=== PATIENT | female | born 1935 | race Caucasian/White ===

== ENCOUNTER → 2018-11-23 13:54 | Outpatient (CLI) | payer MEDICARE, OTHER | END | disposition home or self-care (01) | LOC: D.LAB 13:54 | PROVIDERS: ATTEND Internal Medicine Gastroenterology | DX: K90.0 Celiac disease (principal) ==

== ENCOUNTER → 2019-01-04 13:58 | Outpatient (CLI) | payer MEDICARE, OTHER | END | disposition home or self-care (01) | LOC: D.LAB 13:58 | PROVIDERS: ATTEND Internal Medicine Gastroenterology | DX: K90.0 Celiac disease (principal); R19.4 Change in bowel habit ==

== ENCOUNTER 2019-03-11 09:57 | Inpatient (IN) | payer MEDICARE, OTHER ==
[2019-03-11] VITALS (37 sets, daily range): BP systolic 93–212; BP diastolic 54–144; BMI 31.6
[~2019-03-11] VITALS: Ht 162.6 cm; Wt 85.5 kg
[2019-03-11] MEDS ORDERED: ASPIRIN81 MG (10:08)
[2019-03-11] MEDS ORDERED: ZOCOR10 MG PO (10:08)
[2019-03-11] MEDS ORDERED: CENTRUM SILVER1 EAC3 PO (10:08)
[2019-03-11] MEDS ORDERED: CALCIUM 600 +1 EAC3 PO (10:09)
[2019-03-11 10:39] LABS: APPEARANCE CLEAR (CLEAR); BILIRUBIN NEGATIVE (NEGATIVE); COLOR STRAW (YELLOW); GLUCOSE NEGATIVE (NEGATIVE); KETONE NEGATIVE (NEGATIVE); NITRITE NEGATIVE (NEGATIVE); PROTEIN 1+ mg/dL (NEGATIVE); SPECIFIC GRAVITY 1.005 (1.005-1.020); UROBILINOGEN NORMAL (NORMAL)
[2019-03-11 10:40] LABS: BACTERIA FEW /hpf (NEGATIVE); EPITHELIAL CELLS 0-5 /hpf (0-5); RED CELLS - URINE 0-5 /hpf (0-5); WHITE CELLS - URINE 0-5 /hpf (NEGATIVE)
[2019-03-11 10:48] LABS: BASOPHILS 0.2 % (0-2); HEMATOCRIT 43.3 % (36.0-48.0); HEMOGLOBIN 14.5 g/dL (12-16); IMMATURE GRANULOCYTES 0.3 % (0-5); LYMPHOCYTES 11.8 % (15-50); MCHC 33.5 g/dL (31.0-37.0); MCV 92.7 fL (80.0-100.0); MEAN PLATELET VOLUME 8.6 fL (7.4-10.4); MONOCYTES 5.7 % (2-11); PLATELET COUNT 242 10x3/uL (130-400); RBC 4.67 10x6/uL (4.00-5.40); RDW 13.8 % (11.5-14.5); WBC 13.8 10x3/uL (4.8-10.8)
[2019-03-11 10:58] LABS: ANION GAP 11.6 mmol/L (8-16); CALCIUM 8.9 mg/dL (8.5-10.1); CARBON DIOXIDE 26.5 mmol/L (21.0-32.0); CREATININE - SERUM 1.1 mg/dL (0.6-1.3); POTASSIUM - SERUM 3.1 mmol/L (3.5-5.1)
[2019-03-11 11:04] LABS: ALBUMIN 3.8 g/dL (3.4-5.0); BILIRUBIN - TOTAL 0.77 mg/dL (0.2-1.3); PROTEIN - SERUM 8.6 g/dL (6.4-8.2)
[2019-03-11 11:28] LABS: APTT 28.4 SECONDS (22.8-39.4); INR 0.98 (0.85-1.17); PROTIME 12.5 SECONDS (11.6-15.0)
[2019-03-11 11:47] LABS: CKMB 1.5 U/L (0.0-3.6); CREATINE KINASE 377 UL (21-215); PRO BNP 172 pg/mL (0-450); TROPONIN-I < 0.017 ng/mL (0.000-0.060)
--- NOTE | 2019-03-11 12:25 | NUR ---
PT RETURN FROM CT WITH INCREASED C/O DYSPNEA AND SWEATING; EDP NOTIFIED; ABG AND UPDRAFT ORDERED; PT OXYGEN INCREASED TO 3/L/NC. WILL REASESS
--- NOTE | 2019-03-11 13:30 | NUR ---
PT ON BIPAP/CPAP; SHE IS STILL DIAPHORETIC AND APPEARS ANXIOUS. COLOR IS WNL FOR RACE. BREATHING IS MODERATLY LABORED. SHE IS UPDATED ON PLAN OF CARE AND DELAYS IN CARE; COMPANIONS AT BEDSIDE; WILL CONTINUE TO MONITOR.
--- NOTE | 2019-03-11 14:52 | NUR ---
PT ASSISTED WITH BEDPAN; URINE SPECIMEN COLLECTED AND SENT TO LAB
--- NOTE | 2019-03-11 15:06 | NUR ---
LR AND ROCEPHIN INFUSION COMPLETE.
--- NOTE | 2019-03-11 15:24 | NUR ---
PER LAB LACTIC ACID IS 3.0. ADVISED ICU NURSE AND DR. MCNALLY.
--- NOTE | 2019-03-11 15:30 | NUR ---
PT ARRIVED IN THE UNIT. HOOKED TO ICU MONITORS. PT ON BIPAP. VSS AT THIS TIME. WILL CONT POC.
--- NOTE | 2019-03-11 15:43 | NUR ---
BP 181/119 DR GONZALES PAGED. NO ANSWER RECIEVED. WILL ATTEMPT TO CONTACT AGAIN.
--- NOTE | 2019-03-11 15:45 | NUR ---
PER DR GONZALES START CARDIZEM GTT AT 10.
--- NOTE | 2019-03-11 16:04 | NUR ---
CALLED DR GONZALES. CONFIRMED THAT HE WANTED CARDIZEM.
--- NOTE | 2019-03-11 16:29 | NUR ---
SPOKE WITH DR PANTOJA AT THE PTS BEDSIDE. DO NOT GIVE CARDIZEM AND START CARDENE. SEE IV FLOW SHEET.
[2019-03-11] MEDS ORDERED: VITAMIN B-12500 MCG PO (16:34)
[2019-03-11] MEDS ORDERED: VITAMIN B-6100 MG PO (16:35)
--- NOTE | 2019-03-11 17:15 | MORECARE ---
CASE MANAGEMENT DISCHARGE SUMMARY PATIENT: VIDYA RAMIERZ UNIT: [id number] ADM DATE: 03/11/19 AGE: 83 : 34 SEX: F ROOM/BED: D.2307 AUTHOR: MARIAM,DOC PHYSICIAN: REFERRING PHYSICIAN: SUZE GONZALES MD DATE OF SERVICE: 03/11/19 Discharge Plan Patient Name: VIDYA RAMIREZ Facility: [facility]:[place] : 1935 Planned Disposition: Home Anticipated Discharge Date: 03/13/19 Discharge Date: Expected LOS: 2 Initial Reviewer: [email or web address] Initial Review Date: 03/11/2019 Generated: 03/11/19 6:15 pm DCP- Discharge Planning Updated by [email or web address]: Latesha Mathews on 03/11/19 4:[address] DC PLAN: Return home alone independently. ANTICIPATED DC NEEDS: Denied known dc needs at time of assessment. CM met with patient to complete initial dc planning assessment. CM educated patient on the CM role and verbal consent given by patient to complete assessment. CM verified patient's address, phone number, and emergency contact phone numbers. Patient lives at home alone and is independent in her care at home. At discharge patient plans to return home and feels this is a safe discharge. CM discussed availability of home health, rehab services, and medical equipment. Patient denied known discharge needs at this time. Her son and daughter both lives out of town but are traveling here since she is being admitted. Transportation provider at discharge will be Akash (neighbor) or one of her kids . CM will continue to follow and will assist as needed with dc plans/needs. Latesha Mathews RN, [facility] DCPIA - Discharge Planning Initial Assessment Updated by [email or web address]: Latesha Mathews on 03/11/19 5:09 pm * Is the patient Alert and Oriented? Yes * How many steps to enter\exit or inside your home? 13 * PCP Dr. Perez * [facility] [place] * Preadmission Environment Home Alone * ADLs Independent * Equipment None * List name and contact numbers for known caregivers / representatives who currently or will assist patient after discharge: Irene Hooker - daughter - [phone] Harjinder Ramirez - son - [phone] Akash Bryson - friend/neighbor - [phone] * Verbal permission to speak to the caregivers and representatives has been obtained from the patient. Yes * Community resources currently utilized None * Additional services required to return to the preadmission environment? No * Can the patient safely return to the preadmission environment? Yes * Has this patient been hospitalized within the prior 30 days at any hospital? No Patient Name: VIDYA RAMIREZ Page [id number] at 1715 All edits/amendments must be made on the electronic document DICTATION DATE: 03/11/191714 COMMERCIAL REPRESENTATIVE: DAVEY 03/11/191714 RPT#: [id number] DC DATE: STATUS: ADM IN [facility] [address] [place] [address] END OF REPORT
--- NOTE | 2019-03-11 20:00 | NUR ---
RECEIVED CARE OF PT, ASSESSMENT PER FLOWSHEET. PT ALERT AND ORIENTED X 4, HR SR ON CM, PPP, BIPAP IN PLACE. ICE WATER AND ORAL CARE PROVIDED, PT ABLE TO REPOSITION SELF, CARDENE GTT AT 9MG/HR, WILL MONITOR.
--- NOTE | 2019-03-11 21:50 | NUR ---
ASSISTED PT ONTO BEDPAN PER REQUEST, VOIDED 175CC OF CLOUDY YELLOW URINE, PERICARE PROVIDED.
--- NOTE | 2019-03-11 23:15 | NUR ---
REASSESSMENT PER FLOWSHEET, PT REMAINS ON 70% BIPAP, TOLERATING WELL. VSS, CARDENE GTT REMAINS OFF, WILL MONITOR.
[2019-03-12] VITALS (24 sets, daily range): BP systolic 104–144; BP diastolic 57–96; Ht 162.6 cm; Wt 85.5 kg
--- NOTE | 2019-03-12 01:20 | NUR ---
PT SON IN VISITING WITH PT, PT IN NO APPARENT DISTRESS, VSS, ALL QUESTIONS ANSWERED. BOTH DENY ANY NEEDS AT THIS TIME.
[2019-03-12 03:15] LABS: ANION GAP 14.7 mmol/L (8-16); CALCIUM 8.5 mg/dL (8.5-10.1); CARBON DIOXIDE 24.1 mmol/L (21.0-32.0); CREATININE - SERUM 1.2 mg/dL (0.6-1.3); MAGNESIUM - SERUM 2.1 mg/dL (1.8-2.4); POTASSIUM - SERUM 3.8 mmol/L (3.5-5.1)
--- NOTE | 2019-03-12 03:30 | NUR ---
ASSISTED PT ONTO BEDPAN, VOIDED 200CC OF CLOUDY YELLOW URINE, PERICARE PROVIDED, WATER AND ORAL CARE PROVIDED.
[2019-03-12 03:38] LABS: BASOPHILS 0.1 % (0-2); EOSINOPHILS 0 % (0-7); HEMATOCRIT 41.4 % (36.0-48.0); HEMOGLOBIN 13.8 g/dL (12-16); IMMATURE GRANULOCYTES 0.2 % (0-5); LYMPHOCYTES 6.7 % (15-50); MCH 30.5 pg (26.0-34.0); MCHC 33.3 g/dL (31.0-37.0); MCV 91.4 fL (80.0-100.0); MEAN PLATELET VOLUME 8.8 fL (7.4-10.4); MONOCYTES 2.6 % (2-11); NEUTROPHILS 90.4 % (40-80); PLATELET COUNT 254 10x3/uL (130-400); RBC 4.53 10x6/uL (4.00-5.40); RDW 13.7 % (11.5-14.5); WBC 16.1 10x3/uL (4.8-10.8)
--- NOTE | 2019-03-12 05:55 | NUR ---
NO VISITORS PRESENT AT THIS TIME, PT RESTING WITH EYES CLOSED, VSS, BIPAP IN PLACE.
--- NOTE | 2019-03-12 08:05 | NUR ---
PT FAMILY AT BEDSIDE UPDATE GIVEN. WILL CONTINUE TO MONITOR.
--- NOTE | 2019-03-12 09:45 | NUR ---
DR TRISTAN AT THE PTS BEDSIDE.
--- NOTE | 2019-03-12 09:59 | NUR ---
INSTRUCTED THE PT TO USE HER IS 10X'S/H. PT PULLS ABOUT 500 TO 750 ON HER IS. WILL CONT POC.
--- NOTE | 2019-03-12 10:56 | NUR ---
IRENE RECIEVED FROM FATOUMATA COLINDRES
--- NOTE | 2019-03-12 11:33 | NUR ---
PATIENT HAD SMALL BM AND URINE. AMBULATED FROM BED TO BEDSIDE
--- NOTE | 2019-03-12 11:33 | NUR ---
PATIENT SPUTUM IS WILSON COLORED.
--- NOTE | 2019-03-12 12:36 | NUR ---
PATIENT ONLY AT 25% OF HER TRAY. DR CORDOVA AT BEDSIDE.
--- NOTE | 2019-03-12 19:00 | NUR ---
REPORT RECIEVED, SHIFT ASSESSMENT COMPLETE, PT IS ALERT AND ORIENTED, ON 10L HIGH LINDY NC WITH 97% O2 SAT. ALL PPP, VSS, CALL LIGHT IN REACH
--- NOTE | 2019-03-12 21:00 | NUR ---
FAMILY AT BEDSIDE, UPDATE GIVEN
--- NOTE | 2019-03-12 23:11 | NUR ---
REASSESSMENT COMPLETE, NO CHANGES NOTED, PT RESTING AT THIS TIME, VSS, CALL LIGHT IN REACH
[2019-03-13] VITALS (13 sets, daily range): BP systolic 113–177; BP diastolic 59–91
--- NOTE | 2019-03-13 01:15 | NUR ---
PT RESTING WITH EYES CLOSED, NO SIGN OF DISTRESS.
--- NOTE | 2019-03-13 03:26 | NUR ---
REASSESSMENT PER FLOWSHEET, NO ACUTE CHANGES. PT AWAKENS EASILY, DENIES NEEDS. WILL CONT TO WEAN FIO2 PER MD ORDER TOLERATED. ALARMS ON AND C/L IN REACH.
--- NOTE | 2019-03-13 07:00 | NUR ---
PT RESTING IN BED, VSS AND WNL. PT ANSWERS ALL QUESTIONS. SHIFT ASSESSMENT PERFORMED. DENIES ANY NEEDS AT THIS TIME, WILL CONT TO FOLLOW POC
[2019-03-13 07:45] LABS: HEMATOCRIT 41.4 % (36.0-48.0); HEMOGLOBIN 13.9 g/dL (12-16); MCHC 33.6 g/dL (31.0-37.0); MCV 92.4 fL (80.0-100.0); MEAN PLATELET VOLUME 8.8 fL (7.4-10.4); PLATELET COUNT 257 10x3/uL (130-400); RBC 4.48 10x6/uL (4.00-5.40); RDW 14.2 % (11.5-14.5); WBC 23.2 10x3/uL (4.8-10.8)
[2019-03-13 08:00] LABS: ANION GAP 12.4 mmol/L (8-16); CALCIUM 9.1 mg/dL (8.5-10.1); CREATININE - SERUM 0.9 mg/dL (0.6-1.3)
[2019-03-13 08:01] LABS: POTASSIUM - SERUM 4.4 mmol/L (3.5-5.1)
--- NOTE | 2019-03-13 08:30 | NUR ---
PT RESTING IN BED, FAMILY AT BEDSIDE. VSS AND WNL. DENIES ANY NEEDS AT THIS TIME, PT O2 DOWN TO 3L NC. WILL CONT TO FOLLOW POC
--- NOTE | 2019-03-13 09:42 | NUR ---
PT BP 142/75, SPOKE WITH ABOUT RESUMING PT NORVASC SINCE PLACED THE MEDICATION ON HOLD. PER OK TO RESTART NORVASC AND PUT IN TRANSFER ORDERS FOR THE FLOOR.
[2019-03-13 10:16] LABS: LYMPHOCYTES 10 % (15-50); MONOCYTES 14 % (2-11); NEUTROPHILS 74 % (40-80); PLATELET ESTIMATE NORMAL; ROULEAUX OCC
--- NOTE | 2019-03-13 11:19 | NUR ---
HERE AND SPOKE WITH PT. AGREES WITH TRANSFER TO FLOOR. PT RESTING IN BED, VSS AND WNL. CALL LIGHT WITHIN REACH. DENIES ANY NEEDS AT THIS TIME, WILL CONT TO FOLLOW POC
--- NOTE | 2019-03-13 13:29 | NUR ---
PT RESTING IN BED. VSS AND WNL. DENIES ANY NEEDS AT THIS TIME, CALL LIGHT WITHIN REACH. WILL CONT TO FOLLOW POC
--- NOTE | 2019-03-13 16:09 | NUR ---
PT TAKEN TO 2224. NOTIFIED NURSE THAT PT WAS IN ROOM
--- NOTE | 2019-03-13 19:40 | NUR ---
SITTING UP IN BED. ALERT AND ORIENTED X4. RESP IRREG. SOB NOTED. PROD COUGH WITH YELLOW/PINK TINGED SPUTUM NOTED. DENIES PAIN. SALINE LOCK NOTED TO LT HAND. SALINE LOCK TO LT FOREARM REMOVED DUE TO LEAKING. O2 @ 4L/HFC. NO ACUTE DISTRESS. VERY TALKATIVE. NO EDEMA. CL IN REACH.
--- NOTE | 2019-03-13 23:54 | NUR ---
AWAKE. LYING IN BED. NO DISTRESS. O2 @ 4L/NC. OCC COUGH NOTED. DENIES NEEDS. CL IN REACH.
[2019-03-14 01:02] VITALS: BP 160/83
--- NOTE | 2019-03-14 03:58 | NUR ---
HAS RESTED WELL THIS SHIFT. NO DISTRESS. LYING IN BED. CL IN REACH.
[2019-03-14 05:11] VITALS: BP 137/60
[2019-03-14 07:14] LABS: BASOPHILS 0.1 % (0-2); EOSINOPHILS 0 % (0-7); HEMATOCRIT 39.5 % (36.0-48.0); HEMOGLOBIN 13.1 g/dL (12-16); IMMATURE GRANULOCYTES 0.7 % (0-5); LYMPHOCYTES 4.5 % (15-50); MCH 30.8 pg (26.0-34.0); MCHC 33.2 g/dL (31.0-37.0); MCV 92.7 fL (80.0-100.0); MEAN PLATELET VOLUME 8.8 fL (7.4-10.4); MONOCYTES 4.7 % (2-11); PLATELET COUNT 260 10x3/uL (130-400); RBC 4.26 10x6/uL (4.00-5.40); RDW 14.3 % (11.5-14.5); WBC 17.7 10x3/uL (4.8-10.8)
[2019-03-14 07:19] LABS: ALBUMIN 3.1 g/dL (3.4-5.0); ANION GAP 13.6 mmol/L (8-16); BILIRUBIN - TOTAL 0.62 mg/dL (0.2-1.3); CALCIUM 8.6 mg/dL (8.5-10.1); CARBON DIOXIDE 23.4 mmol/L (21.0-32.0); CREATININE - SERUM 0.9 mg/dL (0.6-1.3)
[2019-03-14 09:22] VITALS: BP 156/79
--- NOTE | 2019-03-14 09:59 | NUR ---
NUTRITION F/U PT UP TO SHOWER. TOLERATING AHA DIET WITH 100% INTAKE RECENT MEALS. BM RECORDED ON 03/13. WILL CONTINUE TO MONITOR. RD FOLLOWING
--- NOTE | 2019-03-14 10:46 | NUR ---
PA HERE TO SEE PT, ADJUSTING PO MEDS FOR PAIN, CONT TO MONITOR PT
--- NOTE | 2019-03-14 13:10 | MORECARE ---
CASE MANAGEMENT DISCHARGE SUMMARY PATIENT: VIDYA RAMIREZ UNIT: [id number] ADM DATE: 03/11/19 AGE: 83 : 34 SEX: F ROOM/BED: D.2225 AUTHOR: MARIAM,DOC PHYSICIAN: REFERRING PHYSICIAN: SUZE GONZALES MD DATE OF SERVICE: 03/14/19 Discharge Plan Patient Name: VIDYA RAMIREZ Facility: [facility]:[place] : 1935 Planned Disposition: Home Anticipated Discharge Date: 03/13/19 Discharge Date: Expected LOS: 2 Initial Reviewer: [email or web address] Initial Review Date: 03/11/2019 Generated: 03/14/19 2:10 pm DCP- Discharge Planning Updated by [email or web address]: Latesha Mathews on 03/11/19 4:[address] DC PLAN: Return home alone independently. ANTICIPATED DC NEEDS: Denied known dc needs at time of assessment. CM met with patient to complete initial dc planning assessment. CM educated patient on the CM role and verbal consent given by patient to complete assessment. CM verified patient's address, phone number, and emergency contact phone numbers. Patient lives at home alone and is independent in her care at home. At discharge patient plans to return home and feels this is a safe discharge. CM discussed availability of home health, rehab services, and medical equipment. Patient denied known discharge needs at this time. Her son and daughter both lives out of town but are traveling here since she is being admitted. Transportation provider at discharge will be Akash (neighbor) or one of her kids . CM will continue to follow and will assist as needed with dc plans/needs. Latesha Mathews RN, [facility] DCPIA - Discharge Planning Initial Assessment Updated by [email or web address]: Latesha Mathews on 03/11/19 5:09 pm * Is the patient Alert and Oriented? Yes * How many steps to enter\exit or inside your home? 13 * PCP Dr. Perez * [facility] [place] * Preadmission Environment Home Alone * ADLs Independent * Equipment None * List name and contact numbers for known caregivers / representatives who currently or will assist patient after discharge: Irene Hooker - daughter - [phone] Harjinder Ramirez - son - [phone] Akash Bryson - friend/neighbor - [phone] * Verbal permission to speak to the caregivers and representatives has been obtained from the patient. Yes * Community resources currently utilized None * Additional services required to return to the preadmission environment? No * Can the patient safely return to the preadmission environment? Yes * Has this patient been hospitalized within the prior 30 days at any hospital? No External Providers External Provider: [facility] Next Contact Date: Service Request Date: Service Type: Resolution: Reviewer: Comments: Last DP export: 03/11/19 4:15 Patient Name: VIDYA RAMIREZ Page [id number] at 1310 All edits/amendments must be made on the electronic document DICTATION DATE: 03/14/191309 RIDE ATTENDANT: DAVEY 03/14/19 1310 RPT#: [id number] DC DATE: STATUS: ADM IN [facility] [address] [place] [address] END OF REPORT
--- NOTE | 2019-03-14 13:18 | MORECARE ---
CASE MANAGEMENT DISCHARGE SUMMARY PATIENT: VIDYA RAMIREZ UNIT: [id number] ADM DATE: 03/11/19 AGE: 83 : 34 SEX: F ROOM/BED: D.2225 AUTHOR: MARIAM,DOC PHYSICIAN: REFERRING PHYSICIAN: SUZE GONZALES MD DATE OF SERVICE: 03/14/19 Discharge Plan Patient Name: VIDYA RAMIREZ Facility: [facility]:[place] : 1935 Planned Disposition: Home Anticipated Discharge Date: 03/13/19 Discharge Date: Expected LOS: 2 Initial Reviewer: [email or web address] Initial Review Date: 03/11/2019 Generated: 03/14/19 2:18 pm Comments DCP- Discharge Planning Updated by [email or web address]: Rosalie Shepherd on 03/14/19 12:[address] CM met with patient to discuss discharge planning/needs. States Dr. Rahman states she may go home tomorrow. She states her son is here and will take her home. States she has been on inhalers and has them at home. I informed her that Dr. Rahman wants her on a nebulizer and we will check her room air oxygen level to see if she qualifies for home oxygen. DENAE for [employer] [facility] signed. I spoke with Fanta at [facility] and will fax order, clinical faxed. CM will continue to follow and assist with discharge planning/needs. DCP- Discharge Planning Updated by [email or web address]: Latesha Mathews on 03/11/19 4:[address] DC PLAN: Return home alone independently. ANTICIPATED DC NEEDS: Denied known dc needs at time of assessment. CM met with patient to complete initial dc planning assessment. CM educated patient on the CM role and verbal consent given by patient to complete assessment. CM verified patient's address, phone number, and emergency contact phone numbers. Patient lives at home alone and is independent in her care at home. At discharge patient plans to return home and feels this is a safe discharge. CM discussed availability of home health, rehab services, and medical equipment. Patient denied known discharge needs at this time. Her son and daughter both lives out of town but are traveling here since she is being admitted. Transportation provider at discharge will be Akash (neighbor) or one of her kids . CM will continue to follow and will assist as needed with dc plans/needs. Latesha Mathews RN, [facility] DCPIA - Discharge Planning Initial Assessment Updated by [email or web address]: Latesha Mathews on 03/11/19 5:09 pm * Is the patient Alert and Oriented? Yes * How many steps to enter\exit or inside your home? 13 * PCP Dr. Perez * Pharmacy [facility] [place] * Preadmission Environment Home Alone * ADLs Independent * Equipment None * List name and contact numbers for known caregivers / representatives who currently or will assist patient after discharge: Irene Hooker - daughter - [phone] Harjinder Ramirez - son - [phone] Akash Bryson - friend/neighbor - [phone] * Verbal permission to speak to the caregivers and representatives has been obtained from the patient. Yes * Community resources currently utilized None * Additional services required to return to the preadmission environment? No * Can the patient safely return to the preadmission environment? Yes * Has this patient been hospitalized within the prior 30 days at any hospital? No Coverage Notice Reviewer: [email or web address] Shepherd Notice Issued Date-Time: 03/14/2019 12:30 Notice Type: IM Discharge Notice Notice Delivered To: Patient Relationship to Patient: Janitorial Maintenance Worker Name: Delivery Method: HAND - Hand Delivered Yohana Days: Prior Verbal Notification: Recipient Understood Notice: Yes Recipient Signature: Yes Med Rec Note Co-signed by Attending: Coverage Notice Comment: IMM explained, signed, given, copy placed in MR Reviewer: [id number] Shepherd Notice Issued Date-Time: 03/14/2019 12:30 Notice Type: Patient Choice Letter Notice Delivered To: Patient Relationship to Patient: Self Janitorial Maintenance Worker Name: Delivery Method: HAND - Hand Delivered Yohana Days: Prior Verbal Notification: Recipient Understood Notice: Yes Recipient Signature: Yes Med Rec Note Co-signed by Attending: Coverage Notice Comment: [facility] for [facility] DP export: 03/14/19 12:10 Patient Name: VIDYA RAMIREZ Page [phone] at 1318 All edits/amendments must be made on the electronic document DICTATION DATE: 03/14/19 1318 ELECTRONIC FIELD SERVICE ENGINEER: DAVEY 03/14/19 1318 RPT#: [id number] DC DATE: STATUS: ADM IN [facility] [address] [place] [address] END OF REPORT
[2019-03-14 14:25] VITALS: BP 145/72
--- NOTE | 2019-03-14 15:20 | MORECARE ---
CASE MANAGEMENT DISCHARGE SUMMARY PATIENT: VIDYA RAMIREZ UNIT: [id number] ADM DATE: 03/11/19 AGE: 83 : 34 SEX: F ROOM/BED: D.2225 AUTHOR: MARIAM,DOC PHYSICIAN: REFERRING PHYSICIAN: SUZE GONZALES MD DATE OF SERVICE: 03/14/19 Discharge Plan Patient Name: VIDYA RAMIREZ Facility: [facility]:[place] : 1935 Planned Disposition: Home Anticipated Discharge Date: 03/13/19 Discharge Date: Expected LOS: 2 Initial Reviewer: [email or web address] Initial Review Date: 03/11/2019 Generated: 03/14/19 4:19 pm Comments DCP- Discharge Planning Updated by [id number]: Rosalie Shepherd on 03/14/19 2:[address] Signed order for nebulizer and oxygen faxed to [facility] and spoke with Fanta. Fanta states they will bring her oxygen out today and will call her to set up the home oxygen. Fanta states they will deliver her nebulizer and Duo-neb to the house. Fanta states they keep Duo-neb in stock so she can receive it on discharge. I informed the patient. CM will continue to follow and assist with discharge planning/needs. DCP- Discharge Planning Updated by [email or web address]: Rosalie Shepherd on 03/14/19 12:[address] CM met with patient to discuss discharge planning/needs. States Dr. Rahman states she may go home tomorrow. She states her son is here and will take her home. States she has been on inhalers and has them at home. I informed her that Dr. Rahman wants her on a nebulizer and we will check her room air oxygen level to see if she qualifies for home oxygen. DENAE for [employer] [facility] signed. I spoke with Fanta at [facility] and will fax order, clinical faxed. CM will continue to follow and assist with discharge planning/needs. DCP- Discharge Planning Updated by [email or web address]: Latesha Mathews on 03/11/19 4:[address] DC PLAN: Return home alone independently. ANTICIPATED DC NEEDS: Denied known dc needs at time of assessment. CM met with patient to complete initial dc planning assessment. CM educated patient on the CM role and verbal consent given by patient to complete assessment. CM verified patient's address, phone number, and emergency contact phone numbers. Patient lives at home alone and is independent in her care at home. At discharge patient plans to return home and feels this is a safe discharge. CM discussed availability of home health, rehab services, and medical equipment. Patient denied known discharge needs at this time. Her son and daughter both lives out of town but are traveling here since she is being admitted. Transportation provider at discharge will be Akash (neighbor) or one of her kids . CM will continue to follow and will assist as needed with dc plans/needs. Latesha Mathews RN, [facility] DCPIA - Discharge Planning Initial Assessment Updated by [email or web address]: Latesha Mathews on 03/11/19 5:09 pm * Is the patient Alert and Oriented? Yes * How many steps to enter\exit or inside your home? 13 * PCP Dr. Perez * Pharmacy [facility] [place] * Preadmission Environment Home Alone * ADLs Independent * Equipment None * List name and contact numbers for known caregivers / representatives who currently or will assist patient after discharge: Irene Hooker - daughter - [phone] Harjinder Ramirez - son - [phone] Akash Mcmahons - friend/neighbor - [phone] * Verbal permission to speak to the caregivers and representatives has been obtained from the patient. Yes * Community resources currently utilized None * Additional services required to return to the preadmission environment? No * Can the patient safely return to the preadmission environment? Yes * Has this patient been hospitalized within the prior 30 days at any hospital? No Coverage Notice Reviewer: [id number] Shepherd Notice Issued Date-Time: 03/14/2019 12:30 Notice Type: IM Discharge Notice Notice Delivered To: Patient Relationship to Patient: Supervisor Molding Name: Delivery Method: HAND - Hand Delivered Yohana Days: Prior Verbal Notification: Recipient Understood Notice: Yes Recipient Signature: Yes Med Rec Note Co-signed by Attending: Coverage Notice Comment: IMM explained, signed, given, copy placed in MR Reviewer: [id number] Piter Shepherd Notice Issued Date-Time: 03/14/2019 12:30 Notice Type: Patient Choice Letter Notice Delivered To: Patient Relationship to Patient: Self Supervisor Molding Name: Delivery Method: HAND - Hand Delivered Yohana Days: Prior Verbal Notification: Recipient Understood Notice: Yes Recipient Signature: Yes Med Rec Note Co-signed by Attending: Coverage Notice Comment: [facility] for [facility] Medical Last DP export: 03/14/19 12:18 Patient Name: VIDYA RAMIREZ Page [phone] at 1520 All edits/amendments must be made on the electronic document DICTATION DATE: 03/14/191519 E LEARNING DESIGNER: DAVEY 03/14/19 1520 RPT#: [id number] DC DATE: STATUS: ADM IN [facility] [address] [place] [address] END OF REPORT
[2019-03-14 16:34] VITALS: BP 123/70
[2019-03-14 19:30] VITALS: BP 145/67
--- NOTE | 2019-03-14 20:00 | NUR ---
A/O WITH NO SIGNS OF ACUTE DISTRESS. IV TO THE LT WRIST WITH NO REDNESS OR SWELLING. NC @4L. REFUSED POTASSIUM SINCE IT WAS WITHIN NORMAL LIMITS. DENIES NO NEEDS AT THIS TIME. CONTINUE WITH PLAN OF CARE.
[2019-03-15 00:52] VITALS: BP 138/70
[2019-03-15 05:00] VITALS: BP 157/85
[2019-03-15 07:06] LABS: BASOPHILS 0.1 % (0-2); EOSINOPHILS 0 % (0-7); HEMATOCRIT 41.8 % (36.0-48.0); HEMOGLOBIN 13.8 g/dL (12-16); IMMATURE GRANULOCYTES 1.1 % (0-5); LYMPHOCYTES 6.9 % (15-50); MCH 30.9 pg (26.0-34.0); MCV 93.5 fL (80.0-100.0); MONOCYTES 6.2 % (2-11); NEUTROPHILS 85.7 % (40-80); PLATELET COUNT 269 10x3/uL (130-400); RBC 4.47 10x6/uL (4.00-5.40); RDW 14.3 % (11.5-14.5)
[2019-03-15 07:15] LABS: ALBUMIN 3.2 g/dL (3.4-5.0); BILIRUBIN - TOTAL 0.59 mg/dL (0.2-1.3); CALCIUM 8.7 mg/dL (8.5-10.1); CARBON DIOXIDE 27.3 mmol/L (21.0-32.0); CREATININE - SERUM 0.9 mg/dL (0.6-1.3); POTASSIUM - SERUM 4.3 mmol/L (3.5-5.1); PROTEIN - SERUM 7.1 g/dL (6.4-8.2)
--- NOTE | 2019-03-15 07:56 | NUR ---
AWAKE AND ALERT. ORIENTED X3. NO C/O AT THIS TIME. LUNGS ARE CLEAR BILATERALLY, DRY COUGH NOTED. SKIN IS INTACT WITHOUT REDNESS. SL TO LEFT WRIST IS PATENT WITHOUT REDNESS AT INSERTION SITE. DENIES NEEDS.
[2019-03-15 08:45] VITALS: BP 166/74
--- NOTE | 2019-03-15 10:00 | NUR ---
UP IN ROOM DRESSED AND READY TO GO HOME. WAITING ON DRMichelle FOR DISCHARGE ORDERS.
[2019-03-15] MEDS ORDERED: NORVASC5 MG PO (11:49)
[2019-03-15] MEDS ORDERED: SINGULAIR10 MG PO (11:49)
[2019-03-15] MEDS ORDERED: PREDNISONE10 MG PO (11:49)
[2019-03-15] MEDS ORDERED: LEVOFLOXACIN500 MG PO (11:49)
[2019-03-15] MEDS ORDERED: ALBUTEROL2.5 MG/3 M INH (11:49)
[2019-03-15] MEDS ORDERED: IPRAT-ALBUT 0.5-3 ML UPD (11:49)
[2019-03-15] MEDS ORDERED: TESSALON PERLE100 MG PO (11:49)
[2019-03-15] MEDS ORDERED: MUCINEX600 MG PO (11:49)
[2019-03-15] MEDS ORDERED: BROVANA15 MCG/2 M INH (11:49)
[2019-03-15] MEDS ORDERED: FLORAJEN3 CAPS460 MG PO (11:49)
[2019-03-15 12:13] VITALS: BP 165/71
--- NOTE | 2019-03-15 12:44 | MORECARE ---
CASE MANAGEMENT DISCHARGE SUMMARY PATIENT: VIDYA RAMIREZ UNIT: [id number] ADM DATE: 03/11/19 AGE: 83 : 34 SEX: F ROOM/BED: D.2225 AUTHOR: MARIAM,DOC PHYSICIAN: REFERRING PHYSICIAN: SUZE GONZALES MD DATE OF SERVICE: 03/15/19 Discharge Plan Patient Name: VIDYA RAMIREZ Facility: [facility]:[place] : 1935 Planned Disposition: Home Anticipated Discharge Date: 03/13/19 Discharge Date: Expected LOS: 2 Initial Reviewer: [email or web address] Initial Review Date: 03/11/2019 Generated: 03/15/19 1:43 pm Comments DCP- Discharge Planning Updated by [email or web address]: Jovita Paul on 03/15/19 11:[address] PATIENT FOR DISCHARGE TO HOME TODAY. CM SPOKE WITH LUCI , THE PRIMARY NURSE. CM PROVIDED HER WITH THE PATIENT'S PRESCRIPTIONS THAT DA, THE MANAGER REIMBURSEMENT, PROVIDED. PATIENT HAS PORTABLE OXYGEN AT THE BEDSIDE. CM CALLED [facility] AND SPOKE WITH ERROL, THE SEISMOGRAPH SHOOTER, TO ADVISE OF DISCHARGE FOR TODAY. HE WILL DELIVER THE NEBULIZER NEB MEDICATIONS AND STATIONARY OXYGEN UNIT TO THE PATIENT'S HOME. DCP- Discharge Planning Updated by [id number]: Rosalie Shepherd on 03/14/19 2:[address] Signed order for nebulizer and oxygen faxed to [facility] and spoke with Fanta. Fanta states they will bring her oxygen out today and will call her to set up the home oxygen. Fanta states they will deliver her nebulizer and Duo-neb to the house. Fanta states they keep Duo-neb in stock so she can receive it on discharge. I informed the patient. CM will continue to follow and assist with discharge planning/needs. DCP- Discharge Planning Updated by [email or web address]: Rosalie Shepherd on 03/14/19 12:[address] CM met with patient to discuss discharge planning/needs. States Dr. Rahman states she may go home tomorrow. She states her son is here and will take her home. States she has been on inhalers and has them at home. I informed her that Dr. Rahman wants her on a nebulizer and we will check her room air oxygen level to see if she qualifies for home oxygen. DENAE for [facility] signed. I spoke with Fanta at [facility] and will fax order, clinical faxed. CM will continue to follow and assist with discharge planning/needs. DCP- Discharge Planning Updated by [id number]: Latesha Mathews on 03/11/19 4:[address] DC PLAN: Return home alone independently. ANTICIPATED DC NEEDS: Denied known dc needs at time of assessment. CM met with patient to complete initial dc planning assessment. CM educated patient on the CM role and verbal consent given by patient to complete assessment. CM verified patient's address, phone number, and emergency contact phone numbers. Patient lives at home alone and is independent in her care at home. At discharge patient plans to return home and feels this is a safe discharge. CM discussed availability of home health, rehab services, and medical equipment. Patient denied known discharge needs at this time. Her son and daughter both lives out of town but are traveling here since she is being admitted. Transportation provider at discharge will be Akash (neighbor) or one of her kids . CM will continue to follow and will assist as needed with dc plans/needs. Latesha Mathews RN, [facility] DCPIA - Discharge Planning Initial Assessment Updated by [id number]: Latesha Mathews on 03/11/19 5:09 pm * Is the patient Alert and Oriented? Yes * How many steps to enter\exit or inside your home? 13 * PCP Dr. Perez * Pharmacy [facility] [place] * Preadmission Environment Home Alone * ADLs Independent * Equipment None * List name and contact numbers for known caregivers / representatives who currently or will assist patient after discharge: Irene Hooker - daughter - [phone] Harjinder Ramirez - son - [phone] Akash Lisandros - friend/neighbor - [phone] * Verbal permission to speak to the caregivers and representatives has been obtained from the patient. Yes * Community resources currently utilized None * Additional services required to return to the preadmission environment? No * Can the patient safely return to the preadmission environment? Yes * Has this patient been hospitalized within the prior 30 days at any hospital? No Coverage Notice Reviewer: [id number] - Rosalie Shepherd Notice Issued Date-Time: 03/14/2019 12:30 Notice Type: IM Discharge Notice Notice Delivered To: Patient Relationship to Patient: Landscape Laborer Name: Delivery Method: HAND - Hand Delivered Yohana Days: Prior Verbal Notification: Recipient Understood Notice: Yes Recipient Signature: Yes Med Rec Note Co-signed by Attending: Coverage Notice Comment: IMM explained, signed, given, copy placed in MR Reviewer: [id number] Piter Shepherd Notice Issued Date-Time: 03/14/2019 12:30 Notice Type: Patient Choice Letter Notice Delivered To: Patient Relationship to Patient: Self Landscape Laborer Name: Delivery Method: HAND - Hand Delivered Yohana Days: Prior Verbal Notification: Recipient Understood Notice: Yes Recipient Signature: Yes Med Rec Note Co-signed by Attending: Coverage Notice Comment: [facility] for [facility] Medical Last DP export: 03/14/19 2:20 Patient Name: VIDYA RAMIREZ Page [id number] at 1244 All edits/amendments must be made on the electronic document DICTATION DATE: 03/15/19 1243 HONING MACHINE SET UP OPERATOR: DAVEY 03/15/19 1243 RPT#: [id number] DC DATE: STATUS: ADM IN [facility] [address] [place] [address] END OF REPORT
--- NOTE | 2019-03-15 13:00 | NUR ---
SITTING UP AT BEDSIDE EATING LUNCH. DISCHARGE INSTRUCTIONS GIVEN BOTH VERBALLY AND WRITTEN. ALL QUESTIONS ANSWERED. PATIENT AND SON VERBALIZED UNDERSTANDING OF SAME. NEEDED PRESCRIPTIONS GIVEN TO PATIENT. SL TO LEFT WRIST D/C WITH CATHETER INTACT. ALL BELONGINGS WITH PATIENT.
--- NOTE | 2019-03-16 10:25 | MORECARE ---
CASE MANAGEMENT DISCHARGE SUMMARY PATIENT: VIDYA RAMIREZ UNIT: [id number] ADM DATE: 03/11/19 AGE: 83 : 34 SEX: F ROOM/BED: D.2225 AUTHOR: MARIAM,DOC PHYSICIAN: REFERRING PHYSICIAN: SUZE GONZALES MD DATE OF SERVICE: 03/16/19 Discharge Plan Patient Name: VIDYA RAMIREZ Facility: [facility]:[place] : 1935 Planned Disposition: Home Anticipated Discharge Date: 03/13/19 Discharge Date: 03/15/2019 Expected LOS: 2 Initial Reviewer: [email or web address] Initial Review Date: 03/11/2019 Generated: 03/16/19 11:24 am Comments DCP- Discharge Planning Updated by [id number]: Jovita Paul on 03/15/19 11:[address] PATIENT FOR DISCHARGE TO HOME TODAY. CM SPOKE WITH LUCI , THE PRIMARY NURSE. CM PROVIDED HER WITH THE PATIENT'S PRESCRIPTIONS THAT DA, THE PHARMACY STOCK CLERK, PROVIDED. PATIENT HAS PORTABLE OXYGEN AT THE BEDSIDE. CM CALLED [facility] AND SPOKE WITH ERROL, THE BOTTOM FILLER, TO ADVISE OF DISCHARGE FOR TODAY. HE WILL DELIVER THE NEBULIZER NEB MEDICATIONS AND STATIONARY OXYGEN UNIT TO THE PATIENT'S HOME. DCP- Discharge Planning Updated by [id number]: Rosalie Shepherd on 03/14/19 2:[address] Signed order for nebulizer and oxygen faxed to [facility] and spoke with Fanta. Fanta states they will bring her oxygen out today and will call her to set up the home oxygen. Fanta states they will deliver her nebulizer and Duo-neb to the house. Fanta states they keep Duo-neb in stock so she can receive it on discharge. I informed the patient. CM will continue to follow and assist with discharge planning/needs. DCP- Discharge Planning Updated by [id number]: Rosalie Shepherd on 03/14/19 12:[address] CM met with patient to discuss discharge planning/needs. States Dr. Rahman states she may go home tomorrow. She states her son is here and will take her home. States she has been on inhalers and has them at home. I informed her that Dr. Lacey wants her on a nebulizer and we will check her room air oxygen level to see if she qualifies for home oxygen. DENAE for [facility] signed. I spoke with Fanta at [facility] and will fax order, clinical faxed. CM will continue to follow and assist with discharge planning/needs. DCP- Discharge Planning Updated by [id number]: Latesha Mathews on 03/11/19 4:[address] DC PLAN: Return home alone independently. ANTICIPATED DC NEEDS: Denied known dc needs at time of assessment. CM met with patient to complete initial dc planning assessment. CM educated patient on the CM role and verbal consent given by patient to complete assessment. CM verified patient's address, phone number, and emergency contact phone numbers. Patient lives at home alone and is independent in her care at home. At discharge patient plans to return home and feels this is a safe discharge. CM discussed availability of home health, rehab services, and medical equipment. Patient denied known discharge needs at this time. Her son and daughter both lives out of town but are traveling here since she is being admitted. Transportation provider at discharge will be Akash (neighbor) or one of her kids . CM will continue to follow and will assist as needed with dc plans/needs. Latesha Mathews RN, [facility] DCPIA - Discharge Planning Initial Assessment Updated by [email or web address]: Latesha Mathews on 03/11/19 5:09 pm * Is the patient Alert and Oriented? Yes * How many steps to enter\exit or inside your home? 13 * PCP Dr. Perez * Pharmacy [facility] [place] * Preadmission Environment Home Alone * ADLs Independent * Equipment None * List name and contact numbers for known caregivers / representatives who currently or will assist patient after discharge: Irene Hooker - daughter - [phone] Harjinder Ramirez - son - [phone] Akashgeorgia Mcmahons - friend/neighbor - [phone] * Verbal permission to speak to the caregivers and representatives has been obtained from the patient. Yes * Community resources currently utilized None * Additional services required to return to the preadmission environment? No * Can the patient safely return to the preadmission environment? Yes * Has this patient been hospitalized within the prior 30 days at any hospital? No Coverage Notice Reviewer: [id number] Piter Shepherd Notice Issued Date-Time: 03/14/2019 12:30 Notice Type: IM Discharge Notice Notice Delivered To: Patient Relationship to Patient: Fiberglass Machine Operator Name: Delivery Method: HAND - Hand Delivered Yohana Days: Prior Verbal Notification: Recipient Understood Notice: Yes Recipient Signature: Yes Med Rec Note Co-signed by Attending: Coverage Notice Comment: IMM explained, signed, given, copy placed in MR Reviewer: [id number] Piter Shepherd Notice Issued Date-Time: 03/14/2019 12:30 Notice Type: Patient Choice Letter Notice Delivered To: Patient Relationship to Patient: Self Fiberglass Machine Operator Name: Delivery Method: HAND - Hand Delivered Yohana Days: Prior Verbal Notification: Recipient Understood Notice: Yes Recipient Signature: Yes Med Rec Note Co-signed by Attending: Coverage Notice Comment: DENAE for [facility] DP export: 03/15/19 11:44 Patient Name: VIDYA RAMIREZ Page [id number] at 1025 All edits/amendments must be made on the electronic document DICTATION DATE: 03/16/19 1024 MEN'S CUSTOM HAIR PIECE CONSULTANT: DAVEY 03/16/19 1024 RPT#: [id number] DC DATE:03/15/19 STATUS: DIS IN [facility] [address] [place] [address] END OF REPORT
[2019-03-17 14:08] LABS: IMMUNOGLOBULIN E 41 IU/mL (6-495)
== END 2019-03-15 14:01 | disposition home or self-care (01) | DRG 871 ==
LOC: D.ER 09:57 → D.M2 13:03 → D.ICU 13:03 → D.MS 03-13 16:10
PROVIDERS: Emergency Medicine; Family Medicine; Internal Medicine Pulmonary Disease; ADMIT Internal Medicine Nephrology; ATTEND Internal Medicine Nephrology
DX: A41.9 Sepsis, unspecified organism (principal); J96.01 Acute respiratory failure with hypoxia; J98.11 Atelectasis; J44.0 Chronic obstructive pulmonary disease with (acute) lower respiratory infection; J44.1 Chronic obstructive pulmonary disease with (acute) exacerbation; J45.901 Unspecified asthma with (acute) exacerbation; J20.9 Acute bronchitis, unspecified; J02.0 Streptococcal pharyngitis; I10 Essential (primary) hypertension; E78.5 Hyperlipidemia, unspecified; T36.95XA Adverse effect of unspecified systemic antibiotic, initial encounter; E87.6 Hypokalemia

== ENCOUNTER → 2019-03-22 12:26 | Outpatient (CLI) | payer MEDICARE, OTHER ==
[2019-03-12 09:22] VITALS: BMI 32.1
[~2019-03-22 12:26] MED LIST: ALBUTEROL2.5 MG/3 M INH; ASPIRIN81 MG; BROVANA15 MCG/2 M INH; CALCIUM 600 +1 EAC3 PO; CENTRUM SILVER1 EAC3 PO; FLORAJEN3 CAPS460 MG PO; IPRAT-ALBUT 0.5-3 ML UPD; LEVOFLOXACIN500 MG PO; MUCINEX600 MG PO; NORVASC5 MG PO; PREDNISONE10 MG PO; SINGULAIR10 MG PO; TESSALON PERLE100 MG PO; VITAMIN B-12500 MCG PO; VITAMIN B-6100 MG PO; ZOCOR10 MG PO
== END | disposition home or self-care (01) ==
LOC: D.RAD 12:26
PROVIDERS: ATTEND Family Medicine
DX: J45.909 Unspecified asthma, uncomplicated (principal)

== ENCOUNTER → 2019-10-18 14:16 | Outpatient (CLI) | payer MEDICARE, OTHER ==
[2019-03-12 09:22] VITALS: BMI 32.1
== END | disposition home or self-care (01) ==
LOC: D.LAB 14:16
PROVIDERS: ATTEND Internal Medicine Pulmonary Disease
DX: Z11.59 Encounter for screening for other viral diseases (principal)

== ENCOUNTER → 2019-10-22 12:49 | Outpatient (CLI) | payer MEDICARE, OTHER ==
[2019-03-12 09:22] VITALS: BMI 32.1
== END | disposition home or self-care (01) ==
LOC: D.RT 07-13 14:00 → D.RAD 07-13 14:45 → D.RT 07-17 11:00
PROVIDERS: ATTEND Internal Medicine Pulmonary Disease
DX: G45.9 Transient cerebral ischemic attack, unspecified (principal); J44.9 Chronic obstructive pulmonary disease, unspecified; J98.11 Atelectasis

== ENCOUNTER → 2020-07-15 14:54 | Outpatient (CLI) | payer MEDICARE, OTHER ==
[2019-03-12 09:22] VITALS: BMI 32.1
== END | disposition home or self-care (01) ==
LOC: D.RT 14:54
PROVIDERS: ATTEND Internal Medicine Pulmonary Disease
DX: J44.9 Chronic obstructive pulmonary disease, unspecified (principal); J98.11 Atelectasis

== ENCOUNTER → 2020-10-06 12:56 | Outpatient (CLI) | payer MEDICARE, OTHER ==
[2019-03-12 09:22] VITALS: BMI 32.1
== END | disposition home or self-care (01) ==
LOC: D.US 12:56
PROVIDERS: ATTEND Family Medicine
DX: G45.9 Transient cerebral ischemic attack, unspecified (principal); M54.5 Low back pain